=== PATIENT | male | born 1995 | race Caucasian/White ===

== ENCOUNTER 2017-05-11 00:56 | Emergency (ER) | payer MEDICAID ==
[2017-05-11 02:18] VITALS: BP 124/98
== END 2017-05-11 02:18 | disposition home or self-care (01) ==
LOC: ED 00:56
DX: R25.2 Cramp and spasm (principal); E23.2 Diabetes insipidus
CPT/HCPCS: J1885; Q0092

== ENCOUNTER 2017-05-11 11:21 | Emergency (ER) | payer MEDICAID ==
[~2017-05-11] VITALS: Ht 170.2 cm; Wt 68.0 kg
[2017-05-11 12:10] VITALS: BP 136/88
== END 2017-05-11 12:08 | disposition home or self-care (01) ==
LOC: ED 11:21
DX: S00.31XA Abrasion of nose, initial encounter (principal); R04.0 Epistaxis; F17.210 Nicotine dependence, cigarettes, uncomplicated; E23.2 Diabetes insipidus; F90.9 Attention-deficit hyperactivity disorder, unspecified type; F31.9 Bipolar disorder, unspecified; F15.90 Other stimulant use, unspecified, uncomplicated; Z71.6 Tobacco abuse counseling; X58.XXXA Exposure to other specified factors, initial encounter; Y93.89 Activity, other specified; Y99.8 Other external cause status; Y92.89 Other specified places as the place of occurrence of the external cause
CPT/HCPCS: 99406

== ENCOUNTER 2017-05-15 14:22 | Emergency (ER) | payer MEDICAID ==
[~2017-05-15] VITALS: Ht 172.7 cm; Wt 68.0 kg
[2017-05-15 14:36] VITALS: BP 114/95
== END 2017-05-15 15:31 | disposition other institution (70) ==
LOC: ED 14:22
DX: S96.911A Strain of unspecified muscle and tendon at ankle and foot level, right foot, initial encounter (principal); S10.91XA Abrasion of unspecified part of neck, initial encounter; X58.XXXA Exposure to other specified factors, initial encounter; Y93.89 Activity, other specified; Y92.89 Other specified places as the place of occurrence of the external cause; Y99.8 Other external cause status

== ENCOUNTER 2017-05-15 14:22 | Emergency (ER) | payer OTHER | END 2017-05-15 15:31 | disposition other institution (70) | LOC: ED 14:22 | DX: Z02.89 Encounter for other administrative examinations (principal) ==

== ENCOUNTER 2018-01-05 01:19 | Emergency (ER) | payer MEDICAID | END 2018-01-05 02:09 | disposition left against medical advice (07) | LOC: ED 01:19 | DX: Z53.21 Procedure and treatment not carried out due to patient leaving prior to being seen by health care provider (principal) ==

== ENCOUNTER 2018-04-02 00:56 | Emergency (ER) | payer MEDICAID ==
[~2018-04-02] VITALS: Ht 177.8 cm; Wt 66.2 kg
[2018-04-02 01:00] VITALS: Ht 177.8 cm; Wt 66.2 kg
[2018-04-02 02:02] VITALS: BP 122/83
[2018-04-02 02:13] LABS: microscopic required? NO
[2018-04-02 02:28] LABS: BASOPHIL % 0.5 % (0-2); PLATELET COUNT 376 x10^3mcL (130-400)
[2018-04-02 02:30] LABS: UA SPECIFIC GRAVITY <=1.005 (1.005-1.035); urine erythrocyte NEGATIVE (NEGATIVE)
[2018-04-02 02:31] LABS: CALCIUM 8.5 mg/dL (8.5-10.1); CARBON DIOXIDE 28.2 mmol/L (21-32); CHLORIDE SERUM 107 mmol/L (98-107); CREATININE SERUM 1.1 mg/dL (0.7-1.3); GFR1 > 60 mL/min; GLUCOSE SERUM 80 mg/dL (74-106); POTASSIUM SERUM 3.6 mmol/L (3.5-5.1); SODIUM SERUM 142 mmol/L (136-145)
[2018-04-02 02:39] LABS: ALBUMIN 3.9 g/dL (3.4-5.0); ALKALINE PHOSPHATASE 91 U/L (46-116); ALT/SGPT 63 U/L (16-63); AST/SGOT 35 U/L (15-37); BILIRUBIN TOTAL 1.2 mg/dL (0.20-1.00); TOTAL PROTEIN, SERUM 7.1 g/dL (6.4-8.2)
[2018-04-02 02:42] LABS: AMPHETAMINE QUAL UR POSITIVE (See below)
== END 2018-04-02 02:46 | disposition left against medical advice (07) ==
LOC: ED 00:56
PROVIDERS: Emergency Medicine
DX: S00.31XA Abrasion of nose, initial encounter (principal); S00.81XA Abrasion of other part of head, initial encounter; F41.9 Anxiety disorder, unspecified; F32.9 Major depressive disorder, single episode, unspecified; W22.03XA Walked into furniture, initial encounter; Y93.89 Activity, other specified; Y92.89 Other specified places as the place of occurrence of the external cause; Y99.8 Other external cause status
CPT/HCPCS: 90715

== ENCOUNTER 2018-04-18 05:42 | Emergency (ER) | payer MEDICAID ==
[~2018-04-18] VITALS: Ht 172.7 cm; Wt 77.1 kg
[2018-04-18 05:51] VITALS: BP 119/63; Ht 172.7 cm; Wt 77.1 kg
[2018-04-18 07:13] LABS: CALCIUM 8.3 mg/dL (8.5-10.1); CARBON DIOXIDE 28.1 mmol/L (21-32); CHLORIDE SERUM 112 mmol/L (98-107); CREATININE SERUM 1.1 mg/dL (0.7-1.3); GFR1 > 60 mL/min; GLUCOSE SERUM 173 mg/dL (74-106); POTASSIUM SERUM 3.6 mmol/L (3.5-5.1); SODIUM SERUM 150 mmol/L (136-145)
[2018-04-18 07:17] LABS: ALBUMIN 3.9 g/dL (3.4-5.0); ALKALINE PHOSPHATASE 96 U/L (46-116); ALT/SGPT 47 U/L (16-63); AST/SGOT 26 U/L (15-37); BILIRUBIN TOTAL 0.8 mg/dL (0.20-1.00); TOTAL PROTEIN, SERUM 6.9 g/dL (6.4-8.2)
[2018-04-18 07:42] LABS: BASOPHIL % 0.3 % (0-2); PLATELET COUNT 305 x10^3mcL (130-400); RED CELL DISTRIBUTION WIDTH 13.3 % (11.5-14.5)
== END 2018-04-18 07:36 | disposition left against medical advice (07) ==
LOC: ED 05:42
PROVIDERS: Emergency Medicine
DX: R41.82 Altered mental status, unspecified (principal); F41.9 Anxiety disorder, unspecified; F90.9 Attention-deficit hyperactivity disorder, unspecified type; F31.9 Bipolar disorder, unspecified
CPT/HCPCS: 82962; G0480; J7030; Q0092

== ENCOUNTER 2018-05-03 15:21 | Inpatient (IN) | payer MEDICAID ==
[~2018-05-03] VITALS: Ht 170.2 cm; Wt 64.2 kg
[2018-05-03 16:15] LABS: PLATELET COUNT 304 x10^3mcL (130-400); RED CELL DISTRIBUTION WIDTH 13.6 % (11.5-14.5)
[2018-05-03 16:26] LABS: ALBUMIN 3.9 g/dL (3.4-5.0); ALKALINE PHOSPHATASE 80 U/L (46-116); ALT/SGPT 27 U/L (16-63); AST/SGOT 23 U/L (15-37); BILIRUBIN TOTAL 0.9 mg/dL (0.20-1.00); CALCIUM 8.7 mg/dL (8.5-10.1); CARBON DIOXIDE 17.3 mmol/L (21-32); CHLORIDE SERUM 103 mmol/L (98-107); CHOLESTEROL 143 mg/dL (<200); CREATININE SERUM 1.5 mg/dL (0.7-1.3); GFR1 > 60 mL/min; GLUCOSE SERUM 88 mg/dL (74-106); SODIUM SERUM 143 mmol/L (136-145); TOTAL PROTEIN, SERUM 7.1 g/dL (6.4-8.2)
[2018-05-03 16:27] LABS: POTASSIUM SERUM 2.9 mmol/L (3.5-5.1)
[2018-05-03 18:27] LABS: AMPHETAMINE QUAL UR POSITIVE (See below)
[2018-05-04] VITALS (7 sets, daily range): BP systolic 109–158; BP diastolic 61–104
[2018-05-04 01:25] LABS: CHOLESTEROL/HDL RATIO 2.5; MAGNESIUM 2.1 mg/dL (1.8-2.4); PHOSPHOROUS 3.7 mg/dL (2.5-4.9)
[2018-05-04 01:53] LABS: microscopic required? NO
[2018-05-04 02:02] LABS: UA SPECIFIC GRAVITY <=1.005 (1.005-1.035); urine erythrocyte NEGATIVE (NEGATIVE)
[2018-05-04 05:30] LABS: BASOPHIL % 0.3 % (0-2); PLATELET COUNT 313 x10^3mcL (130-400); RED CELL DISTRIBUTION WIDTH 14.1 % (11.5-14.5)
[2018-05-04 05:43] LABS: CALCIUM 9.3 mg/dL (8.5-10.1); CHLORIDE SERUM 130 mmol/L (98-107); GFR1 > 60 mL/min; GLUCOSE SERUM 95 mg/dL (74-106); POTASSIUM SERUM 4.4 mmol/L (3.5-5.1)
[2018-05-04 05:47] LABS: SODIUM SERUM 169 mmol/L (136-145)
[2018-05-04 14:56] LABS: CALCIUM 9.7 mg/dL (8.5-10.1); CARBON DIOXIDE 24.6 mmol/L (21-32); CHLORIDE SERUM 132 mmol/L (98-107); CREATININE SERUM 1.1 mg/dL (0.7-1.3); GFR1 > 60 mL/min; GLUCOSE SERUM 84 mg/dL (74-106); POTASSIUM SERUM 4.2 mmol/L (3.5-5.1)
[2018-05-04 15:00] LABS: SODIUM SERUM 167 mmol/L (136-145)
[2018-05-05] VITALS (12 sets, daily range): BP systolic 116–138; BP diastolic 60–92
[2018-05-05 05:55] LABS: CARBON DIOXIDE 33.5 mmol/L (21-32); CREATININE SERUM 1.7 mg/dL (0.7-1.3); MAGNESIUM 3.6 mg/dL (1.8-2.4); PHOSPHOROUS 5.1 mg/dL (2.5-4.9); POTASSIUM SERUM 3.9 mmol/L (3.5-5.1)
[2018-05-05 05:57] LABS: BASOPHIL % 0.1 % (0-2); PLATELET COUNT 373 x10^3mcL (130-400); RED CELL DISTRIBUTION WIDTH 14.1 % (11.5-14.5)
[2018-05-05 14:29] LABS: BASOPHIL % 0.3 % (0-2); PLATELET COUNT 309 x10^3mcL (130-400)
[2018-05-05 14:40] LABS: RED CELL DISTRIBUTION WIDTH 14.6 % (11.5-14.5)
[2018-05-05 14:50] LABS: CARBON DIOXIDE 30.6 mmol/L (21-32); POTASSIUM SERUM 3.8 mmol/L (3.5-5.1)
[2018-05-05 19:50] LABS: CALCIUM 9.4 mg/dL (8.5-10.1); CARBON DIOXIDE 25.1 mmol/L (21-32); CREATININE SERUM 1.6 mg/dL (0.7-1.3); POTASSIUM SERUM 3.9 mmol/L (3.5-5.1)
[2018-05-06] VITALS (8 sets, daily range): BP systolic 116–148; BP diastolic 52–91; Ht 170.2 cm; Wt 64.2 kg
[2018-05-06 05:02] LABS: BASOPHIL % 0.9 % (0-2); PLATELET COUNT 267 x10^3mcL (130-400); RED CELL DISTRIBUTION WIDTH 14.4 % (11.5-14.5)
[2018-05-06 05:15] LABS: CALCIUM 8.8 mg/dL (8.5-10.1); CARBON DIOXIDE 33.1 mmol/L (21-32); CREATININE SERUM 1.7 mg/dL (0.7-1.3); MAGNESIUM 2.6 mg/dL (1.8-2.4); PHOSPHOROUS 3.7 mg/dL (2.5-4.9); POTASSIUM SERUM 3.1 mmol/L (3.5-5.1)
[2018-05-06 07:45] LABS: CARBON DIOXIDE 32.7 mmol/L (21-32); CREATININE SERUM 1.6 mg/dL (0.7-1.3); POTASSIUM SERUM 3.4 mmol/L (3.5-5.1)
[2018-05-07 01:11] VITALS: BP 115/49
[2018-05-07 03:30] VITALS: BP 115/64
[2018-05-07 05:02] VITALS: BP 115/75
[2018-05-07 05:28] LABS: BASOPHIL % 0.4 % (0-2); PLATELET COUNT 230 x10^3mcL (130-400)
[2018-05-07 05:41] LABS: CALCIUM 8.1 mg/dL (8.5-10.1); CARBON DIOXIDE 32.1 mmol/L (21-32); CHLORIDE SERUM 112 mmol/L (98-107); CREATININE SERUM 1.4 mg/dL (0.7-1.3); GFR1 > 60 mL/min; GLUCOSE SERUM 114 mg/dL (74-106); MAGNESIUM 1.6 mg/dL (1.8-2.4); PHOSPHOROUS 3.1 mg/dL (2.5-4.9); SODIUM SERUM 151 mmol/L (136-145)
[2018-05-07 08:30] VITALS: BP 121/61
== END 2018-05-07 11:07 | disposition left against medical advice (07) | DRG 812 ==
LOC: ED 15:21 → IC 22:48 → MU 22:48 → IC 05-04 12:55
PROVIDERS: Emergency Medicine; Family Medicine; General Practice; Internal Medicine Nephrology
DX: T43.621A Poisoning by amphetamines, accidental (unintentional), initial encounter (principal); N17.0 Acute kidney failure with tubular necrosis; G92 Toxic encephalopathy; E23.2 Diabetes insipidus; M62.82 Rhabdomyolysis; F15.921 Other stimulant use, unspecified with intoxication delirium; F31.89 Other bipolar disorder; F41.8 Other specified anxiety disorders; E87.6 Hypokalemia; F90.9 Attention-deficit hyperactivity disorder, unspecified type; F15.129 Other stimulant abuse with intoxication, unspecified; Z68.25 Body mass index [BMI] 25.0-25.9, adult; Z22.322 Carrier or suspected carrier of Methicillin resistant Staphylococcus aureus; Z53.29 Procedure and treatment not carried out because of patient's decision for other reasons; Y92.009 Unspecified place in unspecified non-institutional (private) residence as the place of occurrence of the external cause
CPT/HCPCS: 82962; 83880; G0480; J0515; J1630; J1885; J2060; J2543; J2597; J3480; J3490; J7030; Q0092

== ENCOUNTER 2018-05-20 14:07 | Inpatient (IN) | payer MEDICAID ==
[~2018-05-20] VITALS: Ht 172.7 cm; Wt 58.3 kg
[2018-05-20 14:11] VITALS: Ht 172.7 cm; Wt 58.3 kg
[2018-05-20 14:51] LABS: BASOPHIL % 0.1 % (0-2); RED CELL DISTRIBUTION WIDTH 13.7 % (11.5-14.5)
[2018-05-20 15:02] LABS: PLATELET COUNT 509 x10^3mcL (130-400)
[2018-05-20 15:22] LABS: AMPHETAMINE QUAL UR POSITIVE (See below)
[2018-05-20 16:03] LABS: CALCIUM 8.8 mg/dL (8.5-10.1); CARBON DIOXIDE 28.3 mmol/L (21-32); CHLORIDE SERUM 115 mmol/L (98-107); CREATININE SERUM 1.2 mg/dL (0.7-1.3); GFR1 > 60 mL/min; GLUCOSE SERUM 115 mg/dL (74-106); SODIUM SERUM 152 mmol/L (136-145)
[2018-05-20 16:07] LABS: ALBUMIN 3.3 g/dL (3.4-5.0); ALKALINE PHOSPHATASE 72 U/L (46-116); ALT/SGPT 29 U/L (16-63); AST/SGOT 23 U/L (15-37); BILIRUBIN TOTAL 0.5 mg/dL (0.20-1.00); TOTAL PROTEIN, SERUM 6.3 g/dL (6.4-8.2)
[2018-05-21 04:08] LABS: MAGNESIUM 2.4 mg/dL (1.8-2.4); PHOSPHOROUS 3.5 mg/dL (2.5-4.9)
[2018-05-21 04:13] LABS: CHOLESTEROL/HDL RATIO 2.5
[2018-05-21 04:50] VITALS: BP 125/74
[2018-05-21 07:09] LABS: BASOPHIL % 0.3 % (0-2); RED CELL DISTRIBUTION WIDTH 14.2 % (11.5-14.5)
[2018-05-21 07:13] LABS: PLATELET COUNT 502 x10^3mcL (130-400)
[2018-05-21 07:55] VITALS: BP 112/66
[2018-05-21 08:46] LABS: UA SPECIFIC GRAVITY <=1.005 (1.005-1.035); microscopic required? YES; urine erythrocyte 2+ (NEGATIVE)
[2018-05-21 12:00] VITALS: BP 120/69
[2018-05-21 13:37] LABS: CARBON DIOXIDE 29.2 mmol/L (21-32); CHLORIDE SERUM 115 mmol/L (98-107); CREATININE SERUM 1.2 mg/dL (0.7-1.3); GFR1 > 60 mL/min; GLUCOSE SERUM 98 mg/dL (74-106); POTASSIUM SERUM 3.2 mmol/L (3.5-5.1); SODIUM SERUM 152 mmol/L (136-145)
[2018-05-21 16:11] VITALS: BP 130/73
[2018-05-21 17:46] VITALS: BP 122/72
[2018-05-21 20:52] VITALS: BP 113/68
[2018-05-22 05:20] VITALS: BP 121/65
[2018-05-22 06:07] LABS: BASOPHIL % 0.4 % (0-2); PLATELET COUNT 388 x10^3mcL (130-400)
[2018-05-22 06:38] LABS: CALCIUM 7.9 mg/dL (8.5-10.1); CARBON DIOXIDE 27.8 mmol/L (21-32); CREATININE SERUM 1.6 mg/dL (0.7-1.3)
[2018-05-22 06:43] LABS: RED CELL DISTRIBUTION WIDTH 14.9 % (11.5-14.5)
[2018-05-22 07:01] LABS: POTASSIUM SERUM 2.7 mmol/L (3.5-5.1)
[2018-05-22 10:41] LABS: CALCIUM 8.8 mg/dL (8.5-10.1); CARBON DIOXIDE 32.7 mmol/L (21-32); CREATININE SERUM 1.7 mg/dL (0.7-1.3); POTASSIUM SERUM 3.5 mmol/L (3.5-5.1)
[2018-05-22 13:02] LABS: CALCIUM 8.8 mg/dL (8.5-10.1); CARBON DIOXIDE 34.1 mmol/L (21-32); CREATININE SERUM 1.6 mg/dL (0.7-1.3); POTASSIUM SERUM 3.4 mmol/L (3.5-5.1)
[2018-05-22 15:07] LABS: CALCIUM 8.2 mg/dL (8.5-10.1); CARBON DIOXIDE 30.2 mmol/L (21-32); CHLORIDE SERUM 111 mmol/L (98-107); CREATININE SERUM 1.4 mg/dL (0.7-1.3); GFR1 > 60 mL/min; GLUCOSE SERUM 135 mg/dL (74-106); SODIUM SERUM 150 mmol/L (136-145)
[2018-05-22 15:11] LABS: POTASSIUM SERUM 2.9 mmol/L (3.5-5.1)
[2018-05-22 16:34] VITALS: BP 99/51
[2018-05-22 18:00] VITALS: BP 118/63
[2018-05-22 19:52] VITALS: BP 115/62
[2018-05-22 21:08] LABS: CALCIUM 8.6 mg/dL (8.5-10.1); CARBON DIOXIDE 30.5 mmol/L (21-32); CHLORIDE SERUM 112 mmol/L (98-107); CREATININE SERUM 1.2 mg/dL (0.7-1.3); GFR1 > 60 mL/min; GLUCOSE SERUM 93 mg/dL (74-106); POTASSIUM SERUM 3.2 mmol/L (3.5-5.1); SODIUM SERUM 151 mmol/L (136-145)
[2018-05-22 23:03] LABS: CALCIUM 8.4 mg/dL (8.5-10.1); CARBON DIOXIDE 30.5 mmol/L (21-32); CHLORIDE SERUM 112 mmol/L (98-107); CREATININE SERUM 1.1 mg/dL (0.7-1.3); GFR1 > 60 mL/min; GLUCOSE SERUM 112 mg/dL (74-106); POTASSIUM SERUM 3.2 mmol/L (3.5-5.1); SODIUM SERUM 150 mmol/L (136-145)
[2018-05-23 03:34] LABS: CALCIUM 8.2 mg/dL (8.5-10.1); CARBON DIOXIDE 31.9 mmol/L (21-32); CHLORIDE SERUM 111 mmol/L (98-107); CREATININE SERUM 1.1 mg/dL (0.7-1.3); GFR1 > 60 mL/min; GLUCOSE SERUM 133 mg/dL (74-106); SODIUM SERUM 150 mmol/L (136-145)
[2018-05-23 03:38] LABS: POTASSIUM SERUM 2.9 mmol/L (3.5-5.1)
[2018-05-23 05:50] VITALS: BP 119/62
[2018-05-23 06:05] LABS: CALCIUM 7.9 mg/dL (8.5-10.1); CARBON DIOXIDE 29.2 mmol/L (21-32); CHLORIDE SERUM 109 mmol/L (98-107); CREATININE SERUM 1.1 mg/dL (0.7-1.3); GFR1 > 60 mL/min; GLUCOSE SERUM 94 mg/dL (74-106); POTASSIUM SERUM 3.4 mmol/L (3.5-5.1); SODIUM SERUM 146 mmol/L (136-145)
[2018-05-23 06:14] LABS: MAGNESIUM 1.8 mg/dL (1.8-2.4)
[2018-05-23 06:38] LABS: BASOPHIL % 0.5 % (0-2); PLATELET COUNT 310 x10^3mcL (130-400); RED CELL DISTRIBUTION WIDTH 13.3 % (11.5-14.5)
[2018-05-23 08:17] VITALS: BP 106/60
[2018-05-23 09:51] LABS: CALCIUM 8.4 mg/dL (8.5-10.1); CARBON DIOXIDE 29.8 mmol/L (21-32); CHLORIDE SERUM 110 mmol/L (98-107); CREATININE SERUM 1.1 mg/dL (0.7-1.3); GFR1 > 60 mL/min; GLUCOSE SERUM 188 mg/dL (74-106); POTASSIUM SERUM 3.5 mmol/L (3.5-5.1); SODIUM SERUM 149 mmol/L (136-145)
[2018-05-23 10:20] LABS: CALCIUM 8.2 mg/dL (8.5-10.1); CARBON DIOXIDE 31.1 mmol/L (21-32); CHLORIDE SERUM 114 mmol/L (98-107); CREATININE SERUM 1.1 mg/dL (0.7-1.3); GFR1 > 60 mL/min; GLUCOSE SERUM 154 mg/dL (74-106); POTASSIUM SERUM 3.6 mmol/L (3.5-5.1); SODIUM SERUM 150 mmol/L (136-145)
[2018-05-23 12:16] LABS: CALCIUM 8.3 mg/dL (8.5-10.1); CARBON DIOXIDE 32.6 mmol/L (21-32); CHLORIDE SERUM 114 mmol/L (98-107); GFR1 > 60 mL/min; GLUCOSE SERUM 103 mg/dL (74-106); POTASSIUM SERUM 4.1 mmol/L (3.5-5.1); SODIUM SERUM 149 mmol/L (136-145)
[2018-05-23 12:33] VITALS: BP 111/57
[2018-05-23 14:05] LABS: CALCIUM 8.2 mg/dL (8.5-10.1); CARBON DIOXIDE 32.9 mmol/L (21-32); CHLORIDE SERUM 112 mmol/L (98-107); CREATININE SERUM 1.1 mg/dL (0.7-1.3); GFR1 > 60 mL/min; GLUCOSE SERUM 123 mg/dL (74-106); POTASSIUM SERUM 3.7 mmol/L (3.5-5.1); SODIUM SERUM 148 mmol/L (136-145)
[2018-05-23 16:14] LABS: CALCIUM 7.9 mg/dL (8.5-10.1); CARBON DIOXIDE 34.2 mmol/L (21-32); CHLORIDE SERUM 113 mmol/L (98-107); GFR1 > 60 mL/min; GLUCOSE SERUM 115 mg/dL (74-106); POTASSIUM SERUM 3.5 mmol/L (3.5-5.1); SODIUM SERUM 145 mmol/L (136-145)
[2018-05-23 16:45] VITALS: BP 109/64
[2018-05-23 18:53] LABS: CALCIUM 8.1 mg/dL (8.5-10.1); CARBON DIOXIDE 28.3 mmol/L (21-32); CHLORIDE SERUM 109 mmol/L (98-107); GFR1 > 60 mL/min; GLUCOSE SERUM 150 mg/dL (74-106); POTASSIUM SERUM 3.4 mmol/L (3.5-5.1); SODIUM SERUM 148 mmol/L (136-145)
[2018-05-23 20:01] VITALS: BP 116/64
[2018-05-23 23:01] LABS: CALCIUM 8.6 mg/dL (8.5-10.1); CARBON DIOXIDE 29.3 mmol/L (21-32); CHLORIDE SERUM 111 mmol/L (98-107); CREATININE SERUM 0.9 mg/dL (0.7-1.3); GFR1 > 60 mL/min; GLUCOSE SERUM 99 mg/dL (74-106); POTASSIUM SERUM 3.7 mmol/L (3.5-5.1); SODIUM SERUM 148 mmol/L (136-145)
[2018-05-24 04:40] LABS: CALCIUM 8.2 mg/dL (8.5-10.1); CARBON DIOXIDE 27.6 mmol/L (21-32); CHLORIDE SERUM 111 mmol/L (98-107); GFR1 > 60 mL/min; GLUCOSE SERUM 96 mg/dL (74-106); POTASSIUM SERUM 3.7 mmol/L (3.5-5.1); SODIUM SERUM 149 mmol/L (136-145)
[2018-05-24 05:42] VITALS: BP 106/79; BP 112/68
[2018-05-24 07:21] LABS: CALCIUM 8.5 mg/dL (8.5-10.1); CARBON DIOXIDE 29.4 mmol/L (21-32); CHLORIDE SERUM 114 mmol/L (98-107); GFR1 > 60 mL/min; GLUCOSE SERUM 103 mg/dL (74-106); SODIUM SERUM 151 mmol/L (136-145)
[2018-05-24 07:25] LABS: BASOPHIL % 0.5 % (0-2); PLATELET COUNT 361 x10^3mcL (130-400); RED CELL DISTRIBUTION WIDTH 13.4 % (11.5-14.5)
[2018-05-24 09:00] VITALS: BP 128/79
== END 2018-05-24 11:16 | disposition left against medical advice (07) | DRG 770 ==
LOC: ED 14:07 → DU 05-21 02:15
PROVIDERS: Emergency Medicine; Internal Medicine; Internal Medicine Nephrology
DX: F15.10 Other stimulant abuse, uncomplicated (principal); N17.0 Acute kidney failure with tubular necrosis; G92 Toxic encephalopathy; E23.2 Diabetes insipidus; S00.01XA Abrasion of scalp, initial encounter; F90.9 Attention-deficit hyperactivity disorder, unspecified type; F41.9 Anxiety disorder, unspecified; X78.8XXA Intentional self-harm by other sharp object, initial encounter; E44.1 Mild protein-calorie malnutrition; E86.0 Dehydration; F13.10 Sedative, hypnotic or anxiolytic abuse, uncomplicated; F31.9 Bipolar disorder, unspecified; T43.625A Adverse effect of amphetamines, initial encounter; Z59.0 Homelessness; Y93.89 Activity, other specified; Y92.89 Other specified places as the place of occurrence of the external cause; Z68.27 Body mass index [BMI] 27.0-27.9, adult
CPT/HCPCS: 82962; C9113; G0480; J1630; J2060; J2405; J2597; J3480; J3486; J7030; J7040; J7070; Q0092

== ENCOUNTER → 2018-05-20 | Emergency (ER) | payer OTHER | LOC: ED 14:07 | DX: Z02.89 Encounter for other administrative examinations (principal) ==

== ENCOUNTER 2019-03-25 08:01 | Emergency (ER) | payer MEDICAID ==
[~2019-03-25] VITALS: Ht 167.6 cm; Wt 72.1 kg
[2019-03-25 08:06] VITALS: Ht 167.6 cm; Wt 72.1 kg
[2019-03-25 10:37] VITALS: BP 114/78
== END 2019-03-25 10:37 | disposition home or self-care (01) ==
LOC: ED 08:01
DX: S43.015A Anterior dislocation of left humerus, initial encounter (principal); F31.9 Bipolar disorder, unspecified; F15.10 Other stimulant abuse, uncomplicated; X50.0XXA Overexertion from strenuous movement or load, initial encounter; Y93.89 Activity, other specified; Y92.89 Other specified places as the place of occurrence of the external cause; Y99.8 Other external cause status
CPT/HCPCS: J1885; J2704; J7030; Q0092

== ENCOUNTER 2019-05-01 13:40 | Emergency (ER) | payer MEDICAID ==
[~2019-05-01] VITALS: Ht 167.6 cm; Wt 65.3 kg
[2019-05-01 13:53] VITALS: Ht 167.6 cm; Wt 65.3 kg
[2019-05-01 16:01] VITALS: BP 116/71
== END 2019-05-01 16:29 | disposition home or self-care (01) ==
LOC: ED 13:40
DX: S43.005A Unspecified dislocation of left shoulder joint, initial encounter (principal); E23.2 Diabetes insipidus; F31.9 Bipolar disorder, unspecified; F90.9 Attention-deficit hyperactivity disorder, unspecified type; W18.30XA Fall on same level, unspecified, initial encounter; Y93.51 Activity, roller skating (inline) and skateboarding; Y92.331 Roller skating rink as the place of occurrence of the external cause; Y99.8 Other external cause status
CPT/HCPCS: J1170

== ENCOUNTER 2019-07-13 08:19 | Emergency (ER) | payer MEDICAID ==
[~2019-07-13] VITALS: Ht 167.6 cm; Wt 72.6 kg
[2019-07-13 08:21] VITALS: Ht 167.6 cm; Wt 72.6 kg
[2019-07-13 09:13] LABS: CALCIUM 8.7 mg/dL (8.5-10.1); CARBON DIOXIDE 30.9 mmol/L (21-32); CHLORIDE SERUM 116 mmol/L (98-107); CREATININE SERUM 0.9 mg/dL (0.7-1.3); GFR1 > 60 mL/min; GLUCOSE SERUM 94 mg/dL (74-106); POTASSIUM SERUM 3.6 mmol/L (3.5-5.1); SODIUM SERUM 155 mmol/L (136-145)
[2019-07-13 09:18] LABS: ALBUMIN 4.3 g/dL (3.4-5.0); ALKALINE PHOSPHATASE 80 U/L (46-116); ALT/SGPT 54 U/L (16-63); AST/SGOT 24 U/L (15-37); BILIRUBIN TOTAL 0.8 mg/dL (0.20-1.00); TOTAL PROTEIN, SERUM 7.8 g/dL (6.4-8.2)
[2019-07-13 09:42] LABS: BASOPHIL % 0.3 % (0-2); PLATELET COUNT 341 x10^3mcL (130-400); RED CELL DISTRIBUTION WIDTH 13.5 % (11.5-14.5)
[2019-07-13 11:27] LABS: AMPHETAMINE QUAL UR POSITIVE (See below)
[2019-07-13 12:00] VITALS: BP 104/67
== END 2019-07-13 12:00 | disposition home or self-care (01) ==
LOC: ED 08:19
PROVIDERS: Emergency Medicine
DX: F15.10 Other stimulant abuse, uncomplicated (principal); E23.2 Diabetes insipidus
CPT/HCPCS: 36415; G0480

== ENCOUNTER 2020-04-07 15:12 | Emergency (ER) | payer MEDICAID ==
[~2020-04-07] VITALS: Ht 167.6 cm; Wt 69.4 kg
[2020-04-07 15:20] VITALS: Ht 167.6 cm; Wt 69.4 kg
[2020-04-07 16:55] VITALS: BP 128/70
== END 2020-04-07 16:55 | disposition home or self-care (01) ==
LOC: ED 15:12
DX: S90.521A Blister (nonthermal), right ankle, initial encounter (principal); F31.9 Bipolar disorder, unspecified; F17.210 Nicotine dependence, cigarettes, uncomplicated; Z59.0 Homelessness; X58.XXXA Exposure to other specified factors, initial encounter; Y93.89 Activity, other specified; Y92.89 Other specified places as the place of occurrence of the external cause; Y99.8 Other external cause status
CPT/HCPCS: 90715; 99406

== ENCOUNTER 2020-04-14 18:29 | Emergency (ER) | payer OTHER | END 2020-04-14 22:02 | disposition other institution (70) | LOC: ED 18:29 | DX: Z02.89 Encounter for other administrative examinations (principal) ==

== ENCOUNTER 2020-04-14 18:29 | Emergency (ER) | payer MEDICAID ==
[~2020-04-14] VITALS: Ht 170.2 cm; Wt 72.6 kg
[2020-04-14 18:32] VITALS: Ht 170.2 cm; Wt 72.6 kg
[2020-04-14 22:01] VITALS: BP 121/85
== END 2020-04-14 22:02 | disposition other institution (70) ==
LOC: ED 18:29
DX: F05 Delirium due to known physiological condition (principal); F15.10 Other stimulant abuse, uncomplicated
CPT/HCPCS: J1630; J2060

== ENCOUNTER 2020-08-02 00:29 | Emergency (ER) | payer MEDICAID ==
[~2020-08-02] VITALS: Ht 165.1 cm; Wt 72.8 kg
[2020-08-02 00:44] VITALS: Ht 165.1 cm; Wt 72.8 kg
[2020-08-02] MEDS ORDERED: BACTRIM DS1 TAB PO (01:58)
[2020-08-02] MEDS ORDERED: KEF500 PO (01:58)
[2020-08-02] MEDS ORDERED: NAPROXEN500 MG PO (01:58)
[2020-08-02 02:15] VITALS: BP 138/71
== END 2020-08-02 02:15 | disposition home or self-care (01) ==
LOC: ED 00:29
DX: L02.512 Cutaneous abscess of left hand (principal); L03.114 Cellulitis of left upper limb; F15.10 Other stimulant abuse, uncomplicated
CPT/HCPCS: J2001